=== PATIENT | female | born 1945 | race Caucasian/White ===

== ENCOUNTER 2024-12-09 11:22 | Emergency (ER) | payer OTHER, SELFPAY ==
[2024-12-09] VITALS (14 sets, daily range): BP systolic 168–201; BP diastolic 58–86; PULSE 75–93; BMI 23.5
[2024-12-09] MEDS: NSS 1000 IV (12:51)
--- NOTE | 2024-12-09 13:04 | ED.GENMED ---
History of Present Illness
General
Chief Complaint: Dizziness
Source: patient and spouse
Exam Limitations: none
Time Seen by Provider: 12/09/24 12:29
Nursing documentation reviewed up to this point in time: agreed with
History of Present Illness
History of Present Illness:
79-year-old female with no reported chronic medical issues presents to the ER with her for evaluation of lightheadedness. Patient reports symptoms started 3 days ago and have been constant since that time. She says that on Thursday she had
a few episodes of nonbloody diarrhea throughout the day that she attributes to diet. She says she has been eating a BRAT diet since then has not had recurrence of diarrhea. She says that shortly after onset of diarrhea however she started to have
some lightheadedness with positional changes and this has continued since then which prompted ER visit. She denies any vertiginous symptoms. She denies any chest pain, palpitations, shortness of breath. She denies any falls or trauma. She denies
any other complaints.
Review of Systems
Review of Systems
All Other Systems: ROS reviewed and negative except as documented in HPI and ROS
Constitutional: Denies fever
Respiratory: Denies trouble breathing
Cardiac: Denies chest pain or palpitations
ABD/GI: Reports diarrhea (Resolved); Denies abdominal pain, vomiting or bloody stools
: Denies flank pain
Musculoskeletal: Denies neck pain or back pain
Neurological: Reports dizzy; Denies weakness or numbness
Phy Exam
Physical Exam
Physical Exam:
General: Awake, alert, oriented x3; no acute distress
Head: Normocephalic, atraumatic
Eyes: Conjunctiva normal, EOMI, pupils equal round and reactive to light bilaterally
Throat: Airway intact, handling secretions
Neck: Trachea midline, supple without meningismus
Lungs: Clear to auscultation bilaterally, no wheezing, rales, rhonchi
Heart: Regular rate and rhythm, no murmurs, gallops, or rubs appreciated
Abd: Soft, non distended, nontender
Neuro: Cranial nerves intact, speech fluid, motor and sensory intact, ambulatory in the ER with steady gait
Extremities: Warm and well-perfused
Scores
Heart Failure Risk
Heart Failure Risk Score: Not Applicable
Heart Score for Chest Pain Patients
STEMI patient?: Not applicable
Withdrawal Assessment of Alcohol
Withdrawal Assessment Completed?: Not applicable
Course
Orders/Labs/Results
Orders:
Orders
12/09/24 11:32
EKG [Electrocardiogram (*1)] Urgent
Reason for Study: Vertigo / Dizzy
EKG- Treatment ONCE
12/09/24 12:31
0.9% Sodium Chloride 1000 ml [Nss] 1,000 ml IV BOLUS
12/09/24 12:52
Complete Blood Count/With Diff Urgent
Comprehensive Metabolic Panel Urgent
12/09/24 13:04
Orthostatic VS- Treatment ONCE
12/09/24 15:25
MR Brain Without Contrast Urgent
Comment:
Reason For Exam: dizziness, dysequilibrium
Recent pill cam endoscopy?: No
12/09/24 15:30
Troponin I Urgent
12/09/24 15:34
CT Head & Neck Angio W/wo IV Urgent
Comment:
Reason For Exam: dizziness, hypertension
Abnormal Lab Results
12/09/24
12:52
WBC 12.4 H 10^3/uL
(4.8-10.8)
RBC 3.59 L 10^6/uL
(4.20-5.40)
Hgb 11.3 L g/dL
(12.0-16.0)
Hct 35.1 L %
(37.0-47.0)
MCH 31.5 H pg
(27.0-31.0)
MCHC 32.2 L g/dL
(33.0-37.0)
RDW 16.4 H %
(11.5-14.5)
MPV 10.5 H fL
(7.4-10.4)
Abs Immat Gran (auto) 0.1 H 10^3/uL
(0-0.05)
Absolute Lymphs (auto) 6.0 H 10^3/uL
(1.2-3.4)
Absolute Monos (auto) 1.0 H 10^3/uL
(0.1-0.6)
Immature Gran % 0.6 H %
(0-0.5)
Neutrophils % 41.4 L %
(42.2-75.2)
Creatinine 0.5 L mg/dL
(0.6-1.0)
Glucose 103 H mg/dl
(70-99)
Albumin 5.1 H g/dl
(3.5-5.0)
12/09/24 12:52
12/09/24 12:52
Vital Signs
Initial and Last Documented VS:
Initial Vital Signs
Temp Pulse Resp BP Pulse Ox
36.5 C 90 20 187/86 98
12/09/24 11:26 12/09/24 11:26 12/09/24 11:26 12/09/24 11:26 12/09/24 11:26
Last Documented Vital Signs
Temp Pulse Resp BP Pulse Ox
36.5 C 77 18 189/66 97
12/09/24 11:26 12/09/24 17:00 12/09/24 17:00 12/09/24 17:50 12/09/24 16:47
MDM/Problems Addressed
Differential Diagnosis Includes:
Viral syndrome, dehydration, electrolyte abnormality/uremia, dysrhythmia, symptomatic anemia
MDM/Problems Addressed:
79-year-old female presents for evaluation of positional lightheadedness over the past few days after having 24 hours of diarrhea. Vitals and exam as above. Plan to check orthostatic vital signs. Check labs including a CBC and a CMP. Will check
EKG. Provide some IV fluids. Reassess after the above.
Labs reviewed: CBC shows marginal leukocytosis in the setting of recent diarrheal illness. Marginal anemia to 11.3 hemoglobin�no priors available for comparison. No bleeding noted in stool she says. This will need long-term follow-up but is not
likely of acute clinical significance. Platelet count is acceptable. History shows acceptable renal function, no significant electrolyte derangements. Her EKG shows normal sinus rhythm. Suspect symptoms may be from some mild dehydration. Will
reassess after fluids.
After 1 L fluid patient still saying she feels 'not right.' Patient ambulated here in the ER and feeling off-balance/unsteady. She says this is very unusual for her. She does remain markedly hypertensive with a blood pressure of 187/86 in triage
remains greater than 180. Will plan to check CT head. Plan likely for admission for continued workup with persistent symptoms and hypertension.
I had a long discussion with the patient and her �patient is very resistant to staying in the hospital for further testing. I explained that if she is persistently dizzy/off balance that stroke should be ruled out in the setting of
hypertension. Patient says that she would be willing to stay this evening for some testing in the ER but does not want to stay in the hospital overnight. I spoke with the radiologist who was willing to try to squeeze patient in for MRI this
evening. Will proceed with CT head with plan for MRI if negative to rule out stroke. If CT and MRI negative plan for discharge with PCP follow-up at patient's request; patient agreeable to admission if these tests are abnormal.
CTA head and neck negative for any acute abnormality. MRI brain shows no evidence of acute stroke. At this point no clear emergent cause for symptoms stable for discharge could be mild viral syndrome, dehydration/vertigo. Patient wishes to go
home and I think this is a reasonable plan at this point. I did advise her that her blood pressure has been persistently elevated and we will start her on an antihypertensive and she feels comfortable with this. Advised her that she needs close
primary care follow-up and texted PCP referral line to facilitate this. All questions answered.
Acute Exacerbation and/or Progression of Chronic Illness: HTN
*Radiology
Radiology exam reviewed: radiology read reviewed
*Pulse Oximetry
SaO2: 98
Oxygen Mode of Delivery: Room air
Patient hypoxic: no (98%)
*EKG
Interpreted by ED Provider?: Yes
Heart Rate: 81
Rate: normal
Rhythm: sinus
[place]: normal axis
Interval: normal interval
QRS Pattern: normal QRS
Ischemia: non-specific ST changes
*Critical Care Note
Total Time (30-74mins, 75-104mins- exclusive of procedures): Not Applicable
Data Reviewed
Source: patient and spouse
Patient Management
Discussion with other providers: Radiologist (Discussed with radiologist)
Escalation/DeEscalation of care consider admission/obs:
Offered/recommended admission�using shared decision making discharged after ER workup
ED Attending Note
-
Portions of this chart may have been created with voice recognition software.� Occasional wrong word or��sound alike� substitutions may have occurred due to the inherent limitations of voice recognition software.
Discharge Plan
Departure
Patient Disposition: Home (Routine Discharge)
Date of Disposition: 12/09/24
Time of Disposition: 18:11
Patient with high blood pressure during this ER visit?: Yes
Discharge Problem:
Dizziness, Hypertension
Instructions: Dizziness, BLOOD PRESSURE
Prescriptions:
New
amlodipine 2.5 mg tablet
2.5 mg PO DAILY Qty: 30 0RF
Activity Restrictions/Additional Instructions:
Thank you for visiting the Emergency Department at [facility].
1. Please schedule a follow up appointment as directed. Call first thing tomorrow morning to make an appointment.
2. If indicated, please take your medications as instructed and indicated on discharge paperwork.
3. If any of your symptoms do not improve, or persist, or become more severe within 6-12 hours, please return to the emergency department for further care.
4. Please return to the emergency department if you develop a headache, neck pain/stiffness, fever greater than 100.4F, chest pain, shortness of breath, persistent nausea, vomiting, slurred speech, difficulty walking, numbness/tingling, weakness,
signs of infection or any other symptoms that are worrisome to you.
Please call [phone] if you have any questions.
Interventions
Interventions:
*Risk Screen - Suicide Last Done: 12/09/24 11:26
*General Assessment Last Done: 12/09/24 11:26
*Neglect/Abuse Screening Last Done: 12/09/24 11:26
*ED- Fall Risk Assessment Last Done: 12/09/24 12:36
*ED COVID-19 Vaccine History Last Done: 12/09/24 12:39
ED- Neurological Assessment Last Done: 12/09/24 12:36
ED- Cardiac Assessment Last Done: 12/09/24 12:40
ED Swallowing Screen Last Done: 12/09/24 13:25
Discharge Date and Time
Print Language: SETSWANA
[2024-12-09 13:11] LABS: Hematocrit 35.1 % (37.0-47.0); Hemoglobin 11.3 g/dL (12.0-16.0); Mean Corp Hgb Conc. 32.2 g/dL (33.0-37.0); Mean Corpuscular Volume 97.8 fL (81.0-99.0); Nucleated Red Blood Cells % 0 %; Platelet Count 288 10^3/uL (130-400); Red Cell Dist. Width 16.4 % (11.5-14.5)
[2024-12-09 13:14] LABS: ALT (SGPT) 21 U/L (0-35); AST (SGOT) 26 U/L (14-36); Albumin 5.1 g/dl (3.5-5.0); Alkaline Phosphatase 43 U/L (38-126); Blood Urea Nitrogen 11 mg/dl (7-17); Calcium 10.0 mg/dl (8.4-10.2); Carbon Dioxide 25 mmol/L (22-30); Chloride 107 mmol/L (98-107); Estimated Creatinine Clearance 62 ml/min; Glucose 103 mg/dl (70-99); Potassium 4.3 mmol/L (3.5-5.1); Sodium 140 mmol/L (135-145); Total Protein 7.7 g/dl (6.3-8.2); eGFR > 60.00
[2024-12-09 16:06] LABS: Troponin I < 0.012 ng/ml
--- NOTE | 2024-12-09 18:29 | EDRN ---
Discharge instructions reviewed with patient, no further questions or concerns at this time.
== END 2024-12-09 18:35 | disposition home or self-care (01) ==
LOC: EMR 11:22
PROVIDERS: EMERGENCY PHYSICIAN Emergency Medicine
DX: R42 Dizziness and giddiness (principal); I10 Essential (primary) hypertension
CPT/HCPCS: 99284; 96360; 70496; 70498; 70551; 80053; 84484; 85025; 93005; Q9967

== ENCOUNTER → 2024-12-31 07:05 | Outpatient (REF) | payer OTHER, SELFPAY | LOC: RCS 07:05 | PROVIDERS: ATTENDING PHYSICIAN Student in an Organized Health Care Education/Training Program | DX: R42 Dizziness and giddiness (principal); R09.89 Other specified symptoms and signs involving the circulatory and respiratory systems | CPT/HCPCS: 93306 ==